=== PATIENT | male | born 1995 | race Caucasian/White ===

== ENCOUNTER 2019-03-09 20:16 | Outpatient (REF) | payer OTHER, SELFPAY ==
[2019-03-11 14:19] LABS: Chlamydia Result Negative; GC Result Negative; Specimen Description URINE
== END 2019-03-09 20:36 ==
LOC: LBN 20:16
PROVIDERS: PCP Family Medicine; Visit Provider Family Medicine
DX: Z20.2 Contact with and (suspected) exposure to infections with a predominantly sexual mode of transmission (principal)
CPT/HCPCS: 87491; 87591

== ENCOUNTER 2020-04-24 09:10 | Emergency (ER) | payer OTHER, SELFPAY ==
[2020-04-24] VITALS (17 sets, daily range): BP systolic 126–154; BP diastolic 62–89; PULSE 73–126; RESP 4–24; TEMP 36.5–36.7; O2SAT 77–100
--- NOTE | 2020-04-24 09:15 | RT.EKG_ITS ---
APPROVED REPORT Exam: Resting ECG Patient Location: E HR:90 bpm ECG Measurements Heart Rate 90 AXIS MN 124 P 82 QRSd 83 QRS 76 QT 336 T 72 QTc 411 <Conclusion> Sinus rhythm. jpt elevation with early repolarization. non diagnostic
--- NOTE | 2020-04-24 09:22 | ED.GENADUL_ITS ---
Discharge Plan Disposition Patient Disposition: HOME Condition: Improving Discharge Details Chief Complaint: SOB Clinical Impression: URI (upper respiratory infection) Primary Care Provider: Orion Paiz ED Provider: Selina Ramirez Home Meds and New Rx's Prescriptions: New albuterol sulfate 90 mcg/actuation HFA aerosol inhaler 2 puff IH QID PRN (Reason: shortness of breath or wheezing) Qty: 8 RF: 0 prednisone 20 mg tablet 20 mg PO DAILY Qty: 7 RF: 0 Discharge Instructions Instructions: How to Stop Smoking (ED), Upper Respiratory Infection (ED) Additional Instructions: Follow up with primary care provider in 3-5 days. Return to ED sooner if any worsening or concerns. Increase oral fluids. Please take Tylenol or Ibuprofen with food every 4-6 hours as needed for pain and swelling. Take medications as directed. Return immediately to the ER for any increased trouble breathing, fever, or any concerns. Use inhaler 1 to 2 puffs up to 4 times a day as needed. Please return to the ER or be seen sooner if you have to use your inhaler more than 4 times. Take prednisone once a day for the next week. I encourage you to stop smoking. Stand Alone Forms: PENDING COVID-19 TESTING, Work Release Referrals: Orion Paiz. [Primary Care Provider] - Discharge Data Discharge Date/Time-TO BE ENTERED AT DEPARTURE: 04/24/20 11:55 Medical Decision Making 25-year-old male presents the ER with increased work of breathing and shortness of breath which he reports is been ongoing for last 3 weeks. Got worse over the last 24 hours. Upon arrival he is tripoding, speaking in broken sentences, he does have inspiratory and expiratory wheezes throughout all dunn. He is a daily smoker. He denies any drugs or alcohol. Denies fever. Reports productive sputum which is green and brown in nature. He denies any history of asthma or any respiratory problems. Patient is in moderate distress upon initial exam. 1032: Patient reevaluation, after first albuterol nebulizer. States he feels better, decreased work of breathing at this time, he reports a little bit of back pain. UDS did come back positive for cocaine. Lung sounds are inspiratory rhonchi on the left, expiratory wheezes throughout. Will do 1 more additional albuterol and ipratropium nebulizer treatment. Troponin added onto labs. TECHNIQUE: Imaging protocol: XR of the chest Views: 1 view. COMPARISON: CR CHEST 2 VIEWS PA,LAT 04/22/2015 4:54 PM FINDINGS: Lungs: Unremarkable. No consolidation. Pleural space: Unremarkable. No pleural effusion. No pneumothorax. Heart/Mediastinum: Unremarkable. No cardiomegaly. Bones/joints: Unremarkable. IMPRESSION: No acute findings. Dictated and Authenticated by: Eldon Rees MD. 1130: Second reevaluation after second nebulizer treatment, rhonchi is decreased on the left, troponin is negative within normal limits. Patient reports feeling better will give an albuterol nebulizer to go and prescription written for albuterol inhaler 2 puffs 4 times a day as needed for wheezing shortness of breath, prednisone 20 mg daily ordered x7 days. Strict return instructions given, encouraged smoking cessation. HPI General Mode of arrival: ambulatory . Date/Time Provider Initiated Documentation: 04/24/20 09:11 . Limitations to Documentation: physical limitation . Information obtained by: patient . HPI Narrative: 25-year-old male presents the ER with increased work of breathing and shortness of breath which he reports is been ongoing for last 3 weeks. Got worse over the last 24 hours. Upon arrival he is tripoding, speaking in broken sentences, he does have inspiratory and expiratory wheezes throughout all dunn. He is a daily smoker. He denies any drugs or alcohol. Denies fever. Reports productive sputum which is green and brown in nature. He denies any history of asthma or any respiratory problems. Patient is in moderate distress upon initial exam. Related Data Home Medications Medication Instructions Recorded Confirmed albuterol sulfate 2 puff IH QID PRN #8 gm 04/24/20 prednisone 20 mg PO DAILY #7 tab 04/24/20 Previous Rx's Medication Instructions Recorded albuterol sulfate 2 puff IH QID PRN #8 gm 04/24/20 prednisone 20 mg PO DAILY #7 tab 04/24/20 Allergies Allergy/AdvReac Type Severity Reaction Status Date / Time No Known Allergies Allergy Unverified 04/24/20 09:23 General Stated Complaint: SOB JOSÉ MIGUEL: 2 Review of Systems Narrative: History somewhat limited by patient condition. Constitutional: Negative for weight loss, alert and oriented, well groomed, normal body habitus, appears uncomfortable. Tripoding upon arrival. Speaking in broken sentences. HEENT: Denies trauma, headaches, blurry vision, nasal discharge, sore throat, trouble swallowing. Chest: Denies chest pain, palpitations, irregular rhythm, hypertension. Respiratory: Denies hemoptysis. Positive respiratory distress, increased work of breathing and shortness of breath. GI: Denies abdominal pain, nausea, vomiting, diarrhea, constipation. : Denies dysuria, hematuria, flank pain, rectal bleeding. Neuro: Denies dizziness, blurry vision, weakness, syncope, headache or facial numbness. Hematologic: Denies easy bruising, intolerance to heat or cold, hair loss. [facility] Family History Mother No problems noted. Father No problems noted. Sister No problems noted. Grandfather Hyperlipidemia Asthma Grandfather No problems noted. Grandmother Hyperlipidemia Grandmother No problems noted. Social History Smoking/Tobacco Use Status: Current every day Tobacco Type: cigarettes Drug use: Occasionally Substance use type: does not use Do you feel safe at home: Yes Do you feel safe in your relationship?: Yes Exam Narrative Exam Narrative: Constitutional: Alert and oriented x3. Appears stated age. Normal body habitus. Appears very uncomfortable in moderate distress, tripoding increased work of breathing. Head: Normocephalic, no trauma. Eyes: Pupils PERRLA, Red reflex noted, EOM's intact. Eyelids symmetrical without lesions, discharge, or swelling. ENT: Bilateral TM's WNL, External ear normal to inspection, no mastoid TTP, swelling, or erythema, Nasal turbinates WNL, no nasal discharge. Normal dentition, Posterior pharynx WNL, no exudate. Chest: Tachycardic, normal S1, S2, distal pulses intact. Resp: Inspiratory and expiratory wheezes throughout all 4 lung dunn , patient is tripoding, increased work of breathing noted, no rales, or rhonchi. Musculoskeletal: Normal gait, 5/5 strength to all four extremities. Skin: No suspicious rashes or lesions. Capillary refill less than 2 sec. Neurologic: Cranial nerves II-XII intact. Alert and oriented x 3. DTR's intact. Hematologic/Lymphatic: No ecchymosis, no lymphadenopathy. Course Vital Signs Vital signs: Vital Signs Temperature 36.7 C 04/24/20 09:17 Pulse 112 H 04/24/20 09:17 Respiratory Rate 24 04/24/20 09:17 Blood Pressure 154/89 H 04/24/20 09:17 Pulse Oximetry 94 L 04/24/20 09:17 Temperature 36.7 C 04/24/20 09:17 Temperature Source Tympanic 04/24/20 09:17 Pulse 112 H 04/24/20 09:17 Respiratory Rate 24 04/24/20 09:17 Respiratory Effort 04/24/20 09:19 Blood Pressure 154/89 H 04/24/20 09:17 Blood Pressure Position Sitting 04/24/20 09:17 Pulse Oximetry 94 L 04/24/20 09:17 Oxygen Delivery Method Room Air 04/24/20 09:17 Oxygen Flow Rate 0 04/24/20 09:17 Pain Level 3 04/24/20 09:17
--- NOTE | 2020-04-24 09:40 | DI.RAD_ITS ---
EXAM: XR PORTABLE CHEST AP CLINICAL HISTORY: SOB TECHNIQUE: 2D digital imaging was performed. COMPARISON: CR CHEST 2 VIEWS PA,LAT from 04/22/2015 FINDINGS: LUNGS: Clear. No pleural abnormality seen. HEART: Normal. MEDIASTINUM: Normal. OTHER FINDINGS: None. IMPRESSION: No acute pulmonary findings. DATA REPOSITORY: RADIATION DOSE DELIVERED:
[2020-04-24] MEDS: Albuterol/Ipratropium 3 ML UPD VIAL UPD ×2 (09:50→10:45)
[2020-04-24] MEDS: methylPREDNISolone SUCC 125 MG VIAL IVP (09:50)
[2020-04-24] MEDS: Normal Saline 1,000 ML 1000 ML IV (09:52)
[2020-04-24 09:57] LABS: Abs Immature Grans 0.02 k/cumm (0.0-0.09); Absolute Lymphocyte Count 3.32 k/cumm (1.2-3.4); Absolute Monocyte Count 1.15 k/cumm (0.11-0.7); Absolute Neutrophil Count 6.93 k/cumm (1.2-6.7); Basophils % 0.2; Eosinophils % 5.8; HCT 45.9 % (40.0-50.0); HGB 15.1 g/dL (13.5-17.5); Immature Grans % 0.2 %; Lymphocytes % 27.3; Mean Corp. HGB Concentration 32.9 g/dL (32.0-36.0); Mean Corpuscular Hemoglobin 28.8 pg (27.0-33.0); Mean Corpuscular Volume 87.4 fL (80-95); Mean Platelet Volume 9.5 fL (8.0-11.0); Monocytes % 9.5; Platelet Count 366 x1000/uL (130-400); RBC 5.25 m/cumm (4.50-6.00); RBC Distribution Width 14.9 % (11.8-14.1); White Blood Cell Count 12.15 k/cumm (4.4-10.8)
[2020-04-24 10:00] LABS: Absolute Basophil Count 0.02 k/cumm (0.0-0.2)
--- NOTE | 2020-04-24 10:02 | DI.VRAD_ITS ---
PROCEDURE INFORMATION: Exam: XR Chest, 1 View Exam date and time: 04/24/2020 9:41 AM Age: 25 years old Clinical indication: Other: SOB TECHNIQUE: Imaging protocol: XR of the chest Views: 1 view. COMPARISON: CR CHEST 2 VIEWS PA,LAT 04/22/2015 4:54 PM FINDINGS: Lungs: Unremarkable. No consolidation. Pleural space: Unremarkable. No pleural effusion. No pneumothorax. Heart/Mediastinum: Unremarkable. No cardiomegaly. Bones/joints: Unremarkable. IMPRESSION: No acute findings. Dictated and Authenticated by: Eldon Rees MD. Ordering:MEHDI Marks MD
[2020-04-24 10:12] LABS: ALT 19 U/L (16-63); AST 16 U/L (15-37); Albumin 3.8 g/dL (3.4-5.0); Alkaline Phosphatase 86 U/L (46-116); Anion Gap 5.4 mmol/L (3-11); BUN 9 mg/dL (7-18); Bilirubin, Total 0.3 mg/dL (0.2-1.0); CO2 30.6 mmol/L (21.0-32.0); CREATININE 0.91 mg/dL (0.70-1.30); Calcium 9.1 mg/dL (8.5-10.1); Chloride 103 mmol/L (98-107); Glucose 101 mg/dL (74-106); Potassium 4.5 mmol/L (3.5-5.1); Sodium 139 mmol/L (136-145); Total Protein 7.3 g/dL (6.4-8.2)
[2020-04-24 10:25] LABS: Bilirubin Negative (Negative); Blood Negative (Negative); Clarity Clear (Clear); Glucose Negative (Negative); Ketones Negative (Negative); Leukocyte Esterase Negative (Negative); Nitrite Negative (Negative); Urobilinogen 0.2 EU/dL (Up TO 0.2)
[2020-04-24 10:38] LABS: *AMPHETAMINES SCREEN URINE Negative (Negative); *BARBITURATES SCREEN URINE Negative (Negative); *BENZODIAZEPINES SCREEN URINE Negative (Negative); Cannabinoids THC Negative (Negative); Cocaine Screen,Urine POSITIVE (Negative); METHADONE URINE SCREEN Negative (Negative); OPIATES URINE SCREEN Negative (Negative); Tricyclic Antidepressants Negative (Negative)
[2020-04-24 11:15] LABS: Troponin I < 0.05 ng/mL (<0.06)
[2020-04-24] MEDS: Albuterol HFA 8 GM 60 PUFF INH IH (11:39)
[2020-04-24] MEDS: Inhaler, Assist Device 1 EACH MC (11:40)
[2020-04-27 05:20] LABS: SARS-CoV-2 RNA Undetected (Undetected); SARS-CoV-2 Specimen Source Nasopharynx
== END 2020-04-24 11:55 | disposition home or self-care (01) ==
PROVIDERS: Emergency Provider Registered Nurse Emergency; PCP Family Medicine
DX: J06.9 Acute upper respiratory infection, unspecified (principal); R06.02 Shortness of breath; R06.2 Wheezing; F17.210 Nicotine dependence, cigarettes, uncomplicated; Z11.59 Encounter for screening for other viral diseases
CPT/HCPCS: 36415; 80053; 80307; 93005; 94640; 96361; 96374; 99285; U0003; 71045; 81003; 84484; 85025; 93010; J2930; J7620

== ENCOUNTER 2020-07-08 14:48 | Emergency (ER) | payer MEDICAID, SELFPAY ==
--- NOTE | 2020-07-08 15:00 | RT.EKG_ITS ---
APPROVED REPORT Exam: Resting ECG Patient Location: E HR:84 bpm ECG Measurements Heart Rate 84 AXIS SD 127 P 83 QRSd 89 QRS 77 QT 396 T 65 QTc 468 Conclusion Sinus rhythm...normal P axis, V-rate 60- 99. Sinus w/ rate variation. No STEMI. I have reviewed and interpreted ECG and agree with software generated interpretation.
[2020-07-08 15:04] VITALS: BP 117/81; PULSE 100; RESP 18; TEMP 36.6; O2SAT 100
--- NOTE | 2020-07-08 15:18 | DI.RAD_ITS ---
EXAM: XR PORTABLE CHEST AP CLINICAL HISTORY: sob, r/o acute disease. TECHNIQUE: 2D digital imaging was performed. COMPARISON: CR,XR XR PORTABLE CHEST AP from 04/24/2020 FINDINGS: LUNGS: Clear. No pleural abnormality seen. HEART: Normal. MEDIASTINUM: Normal. OTHER FINDINGS: None. IMPRESSION: No acute pulmonary findings. DATA REPOSITORY: RADIATION DOSE DELIVERED: Total DLP
--- NOTE | 2020-07-08 15:21 | W.ED.GENAD ---
Discharge Plan Disposition Patient Disposition: HOME Condition: Improving Discharge Details Clinical Impression: Acute bronchitis Primary Care Provider: Orion Paiz ED Provider: Gabriella Pham Home Meds and New Rx's Prescriptions: Continued albuterol sulfate 90 mcg/actuation HFA aerosol inhaler 2 puff IH QID PRN (Reason: shortness of breath or wheezing) Qty: 8 RF: 0 Discharge Instructions Instructions: Acute Bronchitis (ED) Additional Instructions: Drink plenty of fluids and get plenty of rest. Use the albuterol inhaler as needed and directed. Take the steroids until finished. If you have no relief or worsening of symptoms in the next 2 days, you can start the antibiotics. Follow-up with your primary care doctor in 1 week. Return to the emergency department with any worsening or new concerning symptoms. Discharge Data Discharge Date/Time-TO BE ENTERED AT DEPARTURE: 07/08/20 18:10 Discharge Physician: Gabriella Pham Medical Decision Making 25-year-old male who is a chronic tobacco smoker presents for shortness of breath and cough with green sputum for the past 2 months. He is speaking in full sentences and no signs of respiratory distress. He has scattered wheezing throughout but with normal oxygen saturation and he appears nontoxic. EKG done on arrival which notes a rate of 84, sinus with no acute ST-T wave ischemic changes. Chest x-ray done shortly after arrival and negative for acute disease. Suspect most likely acute bronchitis. Patient given a DuoNeb and a dose of p.o. steroids with improvement of symptoms. He was offered another neb treatment but declined. Patient was given an albuterol inhaler to go as well as a prescription for prednisone and doxycycline if his symptoms not improve or worsen. Advised to follow up with the primary care doctor for re-evaluation. Usual and customary return precautions given prior to discharge. Medical Records Medical records reviewed: Yes I reviewed the patient's medical records. Imaging Data Radiologic Study: Radiologist's impression: XR PORTABLE CHEST AP CLINICAL HISTORY: sob, r/o acute disease. TECHNIQUE: 2D digital imaging was performed. COMPARISON: CR,XR XR PORTABLE CHEST AP from 04/24/2020 FINDINGS: LUNGS: Clear. No pleural abnormality seen. HEART: Normal. MEDIASTINUM: Normal. OTHER FINDINGS: None. IMPRESSION: No acute pulmonary findings. ECG Data Attestation: I personally reviewed and interpreted this ECG (s) as follows: Interpretation: Rate of 84, sinus, no acute ST elevation or depression. TX 127. QRS 89. QTc 468. HPI General Mode of arrival: ambulatory. Date/Time Provider Initiated Documentation: 07/08/20 15:17. Limitations to Documentation: no limitations. Information obtained by: patient. HPI Narrative: Patient is a 25-year-old male with a history of tobacco and marijuana use who presents with cough with yellow sputum and shortness of breath for the past 2 months. Patient was seen here a few months ago for the same complaint and was given prescriptions for antibiotics and steroids but states he was unable to fill them and his symptoms improved. He states the symptoms returned a couple months ago. Patient denies any known fever or chest pain. Related Data Home Medications Medication Instructions Recorded Confirmed albuterol sulfate 2 puff IH QID PRN #8 gm 04/24/20 07/08/20 Previous Rx's Medication Instructions Recorded albuterol sulfate 2 puff IH QID PRN #8 gm 04/24/20 Allergies Allergy/AdvReac Type Severity Reaction Status Date / Time No Known Allergies Allergy Unverified 07/08/20 15:07 General Stated Complaint: RespSymp JOSÉ MIGUEL: 3 Review of Systems All systems reviewed & are unremarkable except as noted in HPI and below Constitutional Constitutional: Reports as per HPI, Denies chills and Denies fever(s) Eyes Eyes: Denies blurry vision ENT Ears, Nose, Mouth, and Throat: Denies dizziness, Denies sore throat and Denies throat swelling Cardiovascular Cardiovascular: Denies chest pain and Reports dyspnea Respiratory Respiratory: Reports cough and Reports dyspnea Gastrointestinal Gastrointestinal: Denies abdominal pain, Denies diarrhea and Denies vomiting Genitourinary Genitourinary: Denies hematuria and Denies dysuria Musculoskeletal Musculoskeletal: Denies back pain and Denies numbness Integumentary/Breasts Skin/Breast: Denies lesions and Denies rash Neurologic Neurologic: Denies dizziness, Denies localized weakness and Denies numbness Allergic/Immunologic Allergic/Immunologic: Denies throat swelling [facility] Medical History (Updated 07/08/20 @ 17:43 by Gabriella Pham DO) No significant past medical history Surgical History (Updated 07/08/20 @ 17:44 by Gabriella Pham DO) No significant past surgical history Family History Mother No problems noted. Father No problems noted. Sister No problems noted. Grandfather Hyperlipidemia Asthma Grandfather No problems noted. Grandmother Hyperlipidemia Grandmother No problems noted. Social History Smoking/Tobacco Use Status: Current every day Tobacco Type: cigarettes Alcohol Intake: current Alcohol Intake frequency: holidays/special occasions only Drug use: Occasionally Substance use type: does not use Do you feel safe at home: Yes Do you feel safe in your relationship?: Yes Exam Const General: cooperative and no acute distress Orientation: alert, awake and oriented x3 HENMT Head: normal to inspection Ears: hearing grossly normal bilaterally, external ears normal and TM's normal bilaterally General nose exam: external nose normal Face and sinus: normal facial exam Mouth: oral mucosae normal Throat: posterior oropharynx normal Eyes General: appearance normal, both eyes and all related structures Pupils: PERRL EOM: EOM intact bilaterally Neck Neck: normal visual inspection and No submandibular swelling Lymphatic: no lymphadenopathy noted Chest Chest: normal inspection of the chest and no tenderness Resp Effort & Inspection: normal respiratory effort and able to speak in complete sentences Auscultation: rhonchi upper bilaterally and lower bilaterally and wheezes expiratory wheezes and inspiratory wheezes Cardio Rate: regular rate Rhythm: regular rhythm GI Inspection: normal to inspection Palpation: soft, not firm, not rigid and nontender Auscultation: normal bowel sounds Skin General skin exam: no rashes or lesions noted Neuro General: patient alert, patient awake and patient oriented x3 Cognition: normal cognition Speech: speech normal Motor: muscle tone normal throughout Sensory Exam: no sensory deficits noted Extrem General: normal to inspection, full ROM, capillary refill normal, no calf tenderness bilaterally and no edema Psych Appearance: grossly normal Mental Status: mental status grossly normal Speech and Movement: speech and movement normal Affect: normal affect Course Vital Signs Vital signs: Vital Signs Temperature 97.9 F 07/08/20 15:04 Pulse 100 H 07/08/20 15:04 Respiratory Rate 18 07/08/20 15:04 Blood Pressure 117/81 07/08/20 15:04 Pulse Oximetry 100 07/08/20 15:04 Temperature 97.9 F 07/08/20 15:04 Temperature Source Temporal Artery Scan 07/08/20 15:04 Pulse 100 H 07/08/20 15:04 Respiratory Rate 18 07/08/20 15:04 Respiratory Effort Non-Labored 07/08/20 15:09 Blood Pressure 117/81 07/08/20 15:04 Blood Pressure Position Sitting 07/08/20 15:04 Pulse Oximetry 100 07/08/20 15:04 Oxygen Delivery Method Room Air 07/08/20 15:04 Oxygen Flow Rate 0 07/08/20 15:04
[2020-07-08] MEDS: predniSONE 20 MG TAB 60 MG PO (16:46)
[2020-07-08 16:48] VITALS: RESP 4; RESP 8
[2020-07-08] MEDS: Albuterol/Ipratropium 3 ML UPD VIAL UPD (16:48)
[2020-07-08 17:38] VITALS: BP 111/86; PULSE 108; RESP 18; O2SAT 96
== END 2020-07-08 18:10 | disposition home or self-care (01) ==
PROVIDERS: Emergency Provider Physician Assistant; PCP Family Medicine
DX: J20.9 Acute bronchitis, unspecified (principal); R06.02 Shortness of breath; F17.210 Nicotine dependence, cigarettes, uncomplicated
CPT/HCPCS: 93005; 94640; 99284; 71045; 93010; J7512; J7620

== ENCOUNTER 2020-07-16 22:29 | Emergency (ER) | payer MEDICAID, SELFPAY ==
[2020-07-16] VITALS (17 sets, daily range): BP systolic 137–173; BP diastolic 70–94; PULSE 48–143; RESP 4–34; TEMP 36.6; O2SAT 80–100
[2020-07-16] MEDS: Midazolam 2 MG/2 ML VIAL IVP (22:30)
[2020-07-16] MEDS: Ketamine 500 MG/10 ML VIAL 200 MG IVP (22:39)
[2020-07-16] MEDS: Rocuronium 50 MG/5 ML SYR 100 MG IVP (22:40)
[2020-07-16 22:43] LABS: Abs Immature Grans 0.05 10^3/uL (0.0-0.06); Absolute Basophil Count 0.09 10^3/uL (0.0-0.2); Absolute Eosinophil Count 1.69 10^3/uL (0.0-0.7); Absolute Neutrophil Count 5.24 10^3/uL (1.2-6.7); Basophils % 0.6; Eosinophils % 11.4; HCT 45.6 % (40.0-50.0); Immature Grans % 0.3; Lymphocytes % 43.8; MCH 28.6 pg (27.0-33.0); MCHC 30.7 % (32.0-36.0); MCV 93.3 fL (80-95); MPV 9.4 fL (8.0-11.0); Monocytes % 8.6; Neutrophils % 35.3; Nucleated RBC 0 %; Platelet Count 427 10^3/uL (130-400); RBC 4.89 10^6/uL (4.36-5.78); RDW 15.2 % (11.8-14.1); RDW-SD 52.3 fL; WBC 14.85 10^3/uL (4.4-10.8)
[2020-07-16 22:45] LABS: Absolute Monocyte Count 1.28 10^3/uL (0.1-0.8)
--- NOTE | 2020-07-16 22:45 | RT.EKG_ITS ---
APPROVED REPORT Exam: Resting ECG Patient Location: E HR:115 bpm ECG Measurements Heart Rate 115 AXIS NC 158 P 81 QRSd 90 QRS 84 QT 332 T 77 QTc 459 Conclusion Sinus tachycardia...rate> 99 Right atrial enlargement...P>0.25mV 2 lds or<-0.24mV aVR/aVL Normal Powers There are no significant changes compared to prior EKG performed on 07/08/2020 at 15:16.
[2020-07-16] MEDS: Lactated Ringers 1,000 ML 1000 ML IV (22:47)
[2020-07-16] MEDS: Normal Saline 1,000 ML 1000 ML IV (22:47)
[2020-07-16] MEDS: LORazepam 2 MG/ML VIAL 1 MG IVP (22:50)
--- NOTE | 2020-07-16 22:58 | DI.RAD_ITS ---
EXAM: XR PORTABLE CHEST AP POST LINE CLINICAL HISTORY: Resp distress, post intubation TECHNIQUE: 2D digital imaging was performed. COMPARISON: CR XR PORTABLE CHEST AP from 07/08/2020 FINDINGS: LUNGS: Clear. No pleural abnormality seen. HEART: Normal. MEDIASTINUM: Normal. OTHER FINDINGS: An endotracheal tube is been inserted with the tip at the level of the clavicles. An d is a gastric tube projects beneath the diaphragm. IMPRESSION: No acute pulmonary findings. Satisfactory positioning of endotracheal tube and nasogastric tube. DATA REPOSITORY: RADIATION DOSE DELIVERED:
[2020-07-16 23:01] LABS: Diff Comment Agrees w/ Instrument; RBC Morphology Normal
[2020-07-16 23:08] LABS: ALT 40 U/L (16-63); AST 55 U/L (15-37); Albumin 3.6 g/dL (3.4-5.0); Alkaline Phosphatase 91 U/L (46-116); Anion Gap 5.7 mmol/L (3-11); BUN 15 mg/dL (7-18); Bilirubin, Total 0.3 mg/dL (0.2-1.0); CO2 28.3 mmol/L (21.0-32.0); CREATININE 1.08 mg/dL (0.70-1.30); Chloride 107 mmol/L (98-107); Glucose 146 mg/dL (74-106); Potassium 4.7 mmol/L (3.5-5.1); Sodium 141 mmol/L (136-145); Total Protein 6.9 g/dL (6.4-8.2)
[2020-07-16] MEDS: methylPREDNISolone SUCC 125 MG VIAL IVP (23:10)
[2020-07-16 23:12] LABS: Magnesium 4.1 mg/dL (1.8-2.4); Troponin I < 0.05 ng/mL (<0.06)
[2020-07-16] MEDS: Lactated Ringers 1,000 ML 200 ML IV (23:21)
[2020-07-16 23:22] LABS: *AMPHETAMINES SCREEN URINE Negative (Negative); *BARBITURATES SCREEN URINE Negative (Negative); *BENZODIAZEPINES SCREEN URINE POSITIVE (Negative); Cannabinoids THC Negative (Negative); Cocaine Screen,Urine POSITIVE (Negative); METHADONE URINE SCREEN Negative (Negative); OPIATES URINE SCREEN POSITIVE (Negative)
--- NOTE | 2020-07-16 23:22 | DI.VRAD_ITS ---
PROCEDURE INFORMATION: Exam: XR Chest, 1 View Exam date and time: 07/16/2020 11:06 PM Age: 25 years old Clinical indication: Other: Respiratory distress; Additional info: Post-intubation TECHNIQUE: Imaging protocol: XR of the chest Views: 1 view. COMPARISON: CR XR PORTABLE CHEST AP 07/08/2020 3:39 PM FINDINGS: Tubes, catheters and devices: NG tube tip just past gastroesophageal junction. Lungs: Unremarkable. No consolidation. Pleural space: Unremarkable. No pleural effusion. No pneumothorax. Heart/Mediastinum: Unremarkable. No cardiomegaly. Bones/joints: Unremarkable. Other findings: endotracheal tube tip 5.5 cm above the ramesh. IMPRESSION: No acute finding. Dictated and Authenticated by: Jimbo Barrow MD. Ordering:MEHDI Marks MD
--- NOTE | 2020-07-16 23:31 | ED.GENADUL_ITS ---
Discharge Plan Disposition Patient Disposition: [facility] Condition: Stable Discharge Details Clinical Impression: Respiratory failure requiring intubation Primary Care Provider: Orion Paiz ED Provider: George Leal Home Meds and New Rx's Prescriptions: No Action albuterol sulfate 90 mcg/actuation HFA aerosol inhaler 2 puff IH QID PRN (Reason: shortness of breath or wheezing) Qty: 8 RF: 0 Medical Decision Making Patient arrives with impending respiratory failure. While he was tolerating CPAP for EMS to some degree he was not tolerating BiPAP here. Saturations were in the 80s. He was becoming more confused and agitated. I was able to get out of him that he had been sick with URI for a couple months. He did say that he was here last week. He denied drug use. Given his distress and his inability to tolerate BiPAP decision was made to intubate. Patient received 2 mg Versed prior to intubation. This calmed him enough that we were able to put nasal cannula and facemask on. Saturations came up to 100%. He was then given ketamine and rocuronium for intubation. He was intubated using CMAC video and tube passed on first attempt without difficulty. Patient was then given 1 mg Ativan while ketamine infusion was being made up. Patient very difficult to bag. OG tube and Montemayor catheter placed. 3 IVs eventually obtained. Patient receiving fluids and ketamine infusion. Attempted to place patient on vent but despite sedation unable to get adequate tidal volumes. We played with [employer] Could not get a tidal volume above 150. Patient became bradycardic and was desaturating. He was removed from the vent. Chest x-ray post intubation had been fine. Repeat chest x-ray after bradycardic hypoxic event confirmed tube to be in place with no pneumothorax. Elected not to place the patient back on vent but to bag him. Call placed to [facility] for consult and consideration of transfer. Patient currently on continuous albuterol. He has received Solu-Medrol. He received magnesium in the field. He still very difficult to bag. We are able to pass suction tubing down the tube without difficulty. We will try subcu epi. [facility] is accepted to the medical ICU. Helicopter has been dispatched. We will try to place back on vent after the subcu epi. However with bagging he seems to do much better. Laboratory studies significant for elevated white count. Electrolytes and kidney function normal. VBG with pH of 7 and PCO2 greater than 100. We will repeat this just before helicopter lands for comparison value. Urine drug screen positive for cocaine, opiates, benzodiazepines. EKG is sinus tach with some rate related change. Medical Records Medical records reviewed: Yes I reviewed the patient's medical records. Lab Data Lab results reviewed: Yes I reviewed the patient's lab results. ECG Data Attestation: I personally reviewed and interpreted this ECG (s) as follows: Interpretation: See EKG HPI General Mode of arrival: EMS . Date/Time Provider Initiated Documentation: 07/16/20 22:35 . Limitations to Documentation: altered mental status . Information obtained by: patient, EMS and old records reviewed . HPI Narrative: Patient brought in by EMS with impending respiratory failure. By report this was sudden onset. However patient was seen here last week with wheezing and URI type symptoms that have been ongoing for a month or 2. Patient was given prescriptions for prednisone and doxycycline which he apparently did not get filled. He denies smoking crack or taking other drugs. EMS had established an IV. He received 2 g of magnesium. He received a DuoNeb and multiple albuterol. He is on CPAP. He is still diaphoretic, pale, altered, in severe respiratory distress. Related Data Home Medications Medication Instructions Recorded Confirmed albuterol sulfate 2 puff IH QID PRN #8 gm 04/24/20 07/08/20 Previous Rx's Medication Instructions Recorded albuterol sulfate 2 puff IH QID PRN #8 gm 04/24/20 Allergies Allergy/AdvReac Type Severity Reaction Status Date / Time No Known Allergies Allergy Unverified 07/08/20 15:07 General Stated Complaint: SOB JOSÉ MIGUEL: 1 Review of Systems Unobtainable due to mental status [facility] Medical History No significant past medical history Surgical History No significant past surgical history Family History Mother No problems noted. Father No problems noted. Sister No problems noted. Grandfather Hyperlipidemia Asthma Grandfather No problems noted. Grandmother Hyperlipidemia Grandmother No problems noted. Social History Smoking/Tobacco Use Status: Current every day Tobacco Type: cigarettes Alcohol Intake: current Alcohol Intake frequency: holidays/special occasions only Drug use: Occasionally Substance use type: does not use Do you feel safe at home: Yes Do you feel safe in your relationship?: Yes Exam Narrative Exam Narrative: Vitals: Afebrile. Tachycardic and hypertensive. Const: Thin male in severe respiratory distress. HEENT: NC/AT. Normal facial exam. Eyes: Normal conjunctiva and sclera. Neck: Supple. Trachea midline. Lungs: Diminished breath sounds throughout. Very prolonged expiratory phase with tight wheeze. Cor: RRR without murmur/gallop. Good radial pulses. GI: Soft. NT/ND. Neuro: Awake and alert but somewhat altered. Cranial nerves II - XII grossly in tact. No gross motor or sensory deficit. Ext: No C/C/E. Skin: Pale/ashen and markedly diaphoretic. Course Vital Signs Vital signs: Vital Signs Temperature 97.9 F 07/16/20 22:30 Pulse 135 H 07/16/20 22:30 Respiratory Rate 30 H 07/16/20 22:30 Blood Pressure 159/88 H 07/16/20 22:30 Pulse Oximetry 80 L 07/16/20 22:30 Temperature 97.9 F 07/16/20 22:30 Temperature Source Tympanic 07/16/20 22:30 Pulse 97 H 07/16/20 23:15 Pulse 89 07/16/20 23:15 Respiratory Rate 17 07/16/20 23:15 Blood Pressure 145/70 H 07/16/20 23:15 Blood Pressure Mean 87 07/16/20 23:15 Pulse Oximetry 98 07/16/20 23:15 Respiratory End-tidal CO2 65 07/16/20 23:15 Oxygen Delivery Method Room Air 07/16/20 22:30 Oxygen Flow Rate 0 07/16/20 22:30 Lab/Test Results Lab/Test Results: Laboratory Tests Range/Units 07/16/20 07/16/20 07/16/20 22:35 22:35 22:37 WBC (4.4-10.8) 10^3/uL 14.85 H RBC (4.36-5.78) 10^6/uL 4.89 Hgb (13.5-17.5) g/dL 14.0 Hct (40.0-50.0) % 45.6 MCV (80-95) fL 93.3 MCH (27.0-33.0) pg 28.6 MCHC (32.0-36.0) % 30.7 L RDW (11.8-14.1) % 15.2 H Plt Count (130-400) 10^3/uL 427 H MPV (8.0-11.0) fL 9.4 Immature Gran % 0.3 Neutrophils % 35.3 Lymphocytes % 43.8 Monocytes % 8.6 Eosinophils % 11.4 Basophils % 0.6 Nucleated RBC % % 0 Absolute Neutrophils (1.2-6.7) 10^3/uL 5.24 Absolute Lymphocytes (1.2-3.4) 10^3/uL 6.50 H Absolute Monocytes (0.1-0.8) 10^3/uL 1.28 H Absolute Eosinophils (0.0-0.7) 10^3/uL 1.69 H Absolute Basophils (0.0-0.2) 10^3/uL 0.09 RBC Morphology Normal VBG pH Cancelled VBG pCO2 Cancelled VBG pO2 Cancelled VBG HCO3 Cancelled VBG Total CO2 Cancelled VBG O2 Saturation Cancelled VBG Base Excess Cancelled Sodium (136-145) mmol/L 141 Potassium (3.5-5.1) mmol/L 4.7 Chloride (98-107) mmol/L 107 Carbon Dioxide (21.0-32.0) mmol/L 28.3 Anion Gap (3-11) mmol/L 5.7 BUN (7-18) mg/dL 15 Creatinine (0.70-1.30) mg/dL 1.08 Estimated GFR/1.73 m2 (mL/min/1.73m2) >= 60.00 Glucose (74-106) mg/dL 146 H Calcium (8.5-10.1) mg/dL 9.0 Magnesium (1.8-2.4) mg/dL 4.1 H* Total Bilirubin (0.2-1.0) mg/dL 0.3 AST (15-37) U/L 55 H ALT (16-63) U/L 40 Alkaline Phosphatase (46-116) U/L 91 Troponin I (<0.06) ng/mL < 0.05 Total Protein (6.4-8.2) g/dL 6.9 Albumin (3.4-5.0) g/dL 3.6 Procedures Intubation sedative: Ketamine Mg Given: 200 paralytic: Rocuronium Mg Given: 100 Laryngoscope: fiberoptic video scope Assist Device Used: fiberoptic device ET Tube Size: 8 ET Tube Uncuffed: Yes Tube Secured Depth (cm): 25 Tube Secured Location: teeth Tube Placement Confirmation: visualized tube passing through cords and confirmation by capnometry Patient Tolerated Procedure: no complications Intubation Complications: none Critical Care Time Critical Care Time Critical Care Time: Yes Total Critical Care Time: 75 Attestation: Upon my evaluation, this patient had a high probability of imminent or life- threatening deterioration, which required my direct attention, intervention, and personal management. I have personally provided minutes of critical care time exclusive of time spent on separately billable procedures. Time includes review of laboratory data, radiology results, discussion with consultants, and monitoring for potential decompensation. Interventions were performed as documented above.
[2020-07-16 23:35] LABS: Tricyclic Antidepressants Negative (Negative)
[2020-07-16 23:45] LABS: Bilirubin Negative (Negative); Blood Moderate (Negative); Clarity Clear (Clear); Glucose Negative (Negative); Ketones Negative (Negative); Leukocyte Esterase Negative (Negative); Nitrite Negative (Negative); Specific Gravity >= 1.030 (1.005-1.025); Urobilinogen 0.2 EU/dL (Up TO 0.2); pH 5.5 (5-8)
[2020-07-16 23:50] LABS: O2 Sat (Venous) > 99 %; pO2 (Venous) 225 mmHg
[2020-07-16 23:51] LABS: C-Reactive Protein 1.49 mg/dL (0.0-0.3)
[2020-07-16 23:51] LABS: pCO2 (Venous) > 100 mmHg (41-51)
[2020-07-17] VITALS (19 sets, daily range): BP systolic 141–153; BP diastolic 71–100; PULSE 52–109; RESP 4–39; O2SAT 100
[2020-07-17 00:11] LABS: Bacteria Negative HPF (Negative); Crystals Negative HPF (Negative); Epithelial Cells Rare HPF (Negative)
[2020-07-17 00:12] LABS: C & S Indicated? Yes; Casts 3-5 Hyaline LPF (Negative); Mucus Negative (Negative)
[2020-07-17] MEDS: EPINEPHrine 1 MG/ML AMP pres-free 0.3 MG SC (00:19)
[2020-07-17 00:23] LABS: D-Dimer 243 ng/mlFEU (<500)
[2020-07-17 00:25] LABS: Procalcitonin < 0.1 ng/mL
[2020-07-17 00:57] LABS: O2 Sat (Venous) 83 %
[2020-07-17 01:01] LABS: pCO2 (Venous) > 100 mmHg (41-51); pH (Venous) 7.04 (7.31-7.41); pO2 (Venous) 62 mmHg
[2020-07-17] MEDS: LORazepam 2 MG/ML VIAL 1 MG IVP ×3 (01:16→01:47)
[2020-07-17] MEDS: Albuterol 2.5 MG/3 ML INH SOLN VIAL UPD (14:27)
[2020-07-17 15:32] LABS: COVID-19 RT-PCR UVMMC Result Negative (Negative)
--- NOTE | 2020-07-17 15:41 | NUR.NOTE ---
Nursing Note: COVID result was negative. The result was faxed to [address] Paulette Chaney aware of result. Sammie Mendenhall Fax [address] [phone]
== END 2020-07-17 02:10 | disposition short-term general hospital (02) ==
PROVIDERS: Registered Nurse Emergency; Emergency Provider Emergency Medicine; PCP Family Medicine
DX: J96.01 Acute respiratory failure with hypoxia (principal); R00.1 Bradycardia, unspecified; R61 Generalized hyperhidrosis; R41.82 Altered mental status, unspecified; Z03.818 Encounter for observation for suspected exposure to other biological agents ruled out
CPT/HCPCS: 31500; 51702; 71045; 80053; 80307; 82805; 84145; 93005; 94640; 94644; 96361; 96365; 96366; 96372; 96375; 96376; 99291; 99292; U0003; 81003; 81015; 83735; 84484; 85025; 85379; 86140; 87086; 93010; 94002; J0171; J2060; J2250; J2930; J7611; J7613; L4350

== ENCOUNTER 2022-01-07 11:55 | Emergency (ER) | payer MEDICAID, SELFPAY ==
[2022-01-07 11:57] VITALS: BP 121/76; PULSE 92; RESP 16; TEMP 36.4; O2SAT 98
--- NOTE | 2022-01-07 12:00 | DI.RAD_ITS ---
Exam(s) XR SHOULDER RT COMPLETE 2+V EXAM: XR SHOULDER RT COMPLETE 2+V CLINICAL HISTORY: Posterior pain after 'pulled' TECHNIQUE: COMPARISON: No exams were available for comparison FINDINGS: Five views were obtained. No bony or soft tissue abnormality seen. No evidence of acute fracture or dislocation. There is a question of slight increase in distance between acromion and clavicle and the possibility of a low-grade AC separation could not be excluded. However there is no clavicular elevation to conf irm this diagnosis. IMPRESSION: RADIATION DOSE DELIVERED: Total DLP
--- NOTE | 2022-01-07 12:09 | ED.GENADUL_ITS ---
Discharge Plan Disposition Patient Disposition: HOME Condition: Improving Discharge Details Clinical Impression: Muscle strain of right shoulder Primary Care Provider: Orion Paiz ED Provider: Luigi Phoenix Home Meds and New Rx's Prescriptions: Continued albuterol sulfate [Proventil HFA] 90 mcg/actuation HFA aerosol inhaler 2 puff inhalation Q6H PRN (Reason: shortness of breath or wheezing) Qty: 8.5 0RF Flovent HFA 220 mcg/actuation HFA aerosol inhaler 2 puff inhalation BID 0RF Discharge Instructions Instructions: Muscle Strain (ED) Additional Instructions: Apply ice to area 20 minutes at a time to reduce discomfort due to inflammation. May use the provided methocarbamol as needed for muscular pain. We have referred you to orthopedic clinic for follow-up and recheck. Clinic number is [phone]. Sling as needed for comfort 3 to 7 days time. Return to the ER for any acute concerns. Medical Decision Making This is an otherwise healthy 26-year-old male whose right arm was forcibly deviated overhead and backwards when tensioned by a sap line while working in the [email or web address] yesterday. He now has reproducible anterolateral deltoid tenderness, tenderness of the medial border of the scapula. Differential diagnosis includes strain,SLAP lesion, rotator cuff injury. Patient underwent screening x-ray without evidence of bony abnormality. We will immobilize patient with a sling. We will have him follow-up in orthopedics due to concern for potential SLAP lesion. Discussed with him home management. Will trial small amount of methocarbamol. He is stable and appropriate for discharge at this time. HPI General Mode of arrival: ambulatory . Date/Time Provider Initiated Documentation: 01/07/22 11:57 . Limitations to Documentation: no limitations . Information obtained by: patient . History of Present Illness 26 year old M presents to the emergency department with the chief complaint of Right shoulder pain after forceful pulling yesterday, described as moderate, Quality is described as dull and constant, and is localized to the right and upper extremity. Patient reports no radiation. Patient started experiencing this hour(s) and it has been constant. improves with Rest improves symptom(s), Movement worsens symptoms . Patient notes denies weakness. Patient did receive the following treatments prior to arrival, none Related Data Home Medications Medication Instructions Recorded Confirmed albuterol sulfate 90 mcg/actuation 2 puff INHALATION Q6H PRN #8.5 g 04/14/21 01/07/22 aerosol inhaler (Proventil HFA) fluticasone propionate 220 2 puff INHALATION BID 04/14/21 01/07/22 mcg/actuation HFA aerosol inhaler (Flovent HFA) Previous Rx's Medication Instructions Recorded albuterol sulfate 90 mcg/actuation 2 puff INHALATION Q6H PRN #8.5 g 04/14/21 aerosol inhaler (Proventil HFA) Allergies Allergy/AdvReac Type Severity Reaction Status Date / Time No Known Allergies Allergy Verified 01/07/22 12:02 General Stated Complaint: Orthopedic JOSÉM IGUEL: 4 Review of Systems Narrative: 6 systems reviewed and otherwise negative PFSH All Active Problems (Updated 01/07/22 @ 12:51 by Luigi Phoenix MD) Muscle strain of right shoulder (Acute) URI (upper respiratory infection) (Acute) Medical History No significant past medical history Surgical History No significant past surgical history Family History Mother No problems noted. Father No problems noted. Sister No problems noted. Grandfather Hyperlipidemia Asthma Grandfather No problems noted. Grandmother Hyperlipidemia Grandmother No problems noted. Social History Smoking/Tobacco Use Status: Current every day Tobacco Type: cigarettes Smoking risk assessment performed?: Yes Alcohol Intake: current Alcohol Intake frequency: a few times a week Alcohol type: beer Drug use: Occasionally Substance use type: marijuana Do you feel safe at home: Yes Do you feel safe in your relationship?: Yes Exam Narrative Exam Narrative: GEN: awake, alert, oriented 3. Pleasant, well groomed, interactive. HEAD: Normocephalic, atraumatic EYES: PERRL, EOMI NECK: Full ROM, no JESSICA, no menigismus CHEST/RESP: Nontender, EXT: 2+ radial pulse bilateral upper extremity. The right upper extremity has r ight lateral deltoid and anterior deltoid tenderness to palpation. Patient has pain with abduction beyond 90 degrees of the right shoulder. Pain on palpation of right medial border of the scapula. Neuro: Grossly normal neurologic exam, conversant, interactive. Psych: Speech fluent, thoughts congruent, affect normal Course Vital Signs Vital signs: Vital Signs Temperature 36.4 C L 01/07/22 11:57 Pulse 92 H 01/07/22 11:57 Respiratory Rate 16 01/07/22 11:57 Blood Pressure 121/76 01/07/22 11:57 Pulse Oximetry 98 01/07/22 11:57 Temperature 36.4 C L 01/07/22 11:57 Temperature Source Skin 01/07/22 11:57 Pulse 92 H 01/07/22 11:57 Respiratory Rate 16 01/07/22 11:57 Respiratory Effort 01/07/22 12:03 Blood Pressure 121/76 01/07/22 11:57 Blood Pressure Position Sitting 01/07/22 11:57 Pulse Oximetry 98 01/07/22 11:57 Oxygen Delivery Method Room Air 01/07/22 11:57 Oxygen Flow Rate 0 01/07/22 11:57 Pain Level 6 01/07/22 11:57 PAWSS Have you Been Recently Intoxicated or Drunk Within the Last 30 days?: No Have you Ever Experienced Previous Episodes of Alcohol Withdrawal?: No Have you ever Experienced Withdrawal Seizures?: No Have you ever Experienced Delirium Tremens(DT)s?: No Have you ever undergone Alcohol Rehabilitation Treatment (i.e, inpt ot outpatient treatment programs)?: No Have you ever Experienced Blackouts?: No Have you ever Combined Alcohol with other Downers within the last 90 days?: No Have you ever Combined Alcohol with any other Substance of Abuse during the last 90 days?: No Positive Blood Alcohol level on Presentation? [PCS.BAL]: No Evidence of Increased Autonomic Activity (i.e. HR>120, tremor, sweating, agitation, nausea)?: No Result: 0
[2022-01-07] MEDS: Methocarbamol 500 MG TAB 1000 MG PO (13:02)
== END 2022-01-07 13:10 | disposition home or self-care (01) ==
PROVIDERS: Emergency Provider Emergency Medicine; PCP Family Medicine
DX: S46.811A Strain of other muscles, fascia and tendons at shoulder and upper arm level, right arm, initial encounter (principal); X50.1XXA Overexertion from prolonged static or awkward postures, initial encounter; Y99.0 Civilian activity done for income or pay
CPT/HCPCS: 99283; 73030

== ENCOUNTER → 2025-08-09 11:11 | Outpatient (CLI) | payer SELFPAY ==
--- NOTE | 2025-08-09 11:35 | DI.RAD_ITS ---
Exam(s) XR SHOULDER RT COMPLETE 2+V EXAM: XR SHOULDER RT COMPLETE 2+V CLINICAL HISTORY: eval pathology, rt shoulder pain, M25.511. TECHNIQUE: 2D digital imaging was performed. COMPARISON: CR XR SHOULDER RT COMPLETE 2+V from 01/07/2022 FINDINGS: Four views No evidence of acute fracture or dislocation glenohumeral joint. No abnormal soft tissue calcifications. Subacromial space appears unremarkable. Clavicle appears unremarkable. Minimal widening of the AC joint, possibly within normal limits. IMPRESSION: Glenohumeral joint unremarkable. Humeral head unremarkable. Slight widening of the AC joint, possibly within normal limits. Correlation with site of tenderness is recommended. There is no clavicular fracture. DATA REPOSITORY: RADIATION DOSE DELIVERED:
== END ==
LOC: DI 11:14
PROVIDERS: Visit Provider Nurse Practitioner Family
DX: M25.511 Pain in right shoulder (principal)
CPT/HCPCS: 73030